=== PATIENT | female | born 1995 | race Caucasian/White ===

== ENCOUNTER 2018-05-31 16:13 | Emergency (ER) | payer OTHER ==
[~2018-05-31] VITALS: Ht 152.4 cm; Wt 57.8 kg
[2018-05-31 16:30] VITALS: BP 131/82
[2018-05-31] MEDS ORDERED: DELTASONE20 M1 PO (17:11)
[2018-05-31] MEDS ORDERED: ROBITUSSIN AC,T10 ML PO (17:11)
[2018-05-31] MEDS ORDERED: LEVAQUIN500 MG PO (17:11)
== END 2018-05-31 17:53 | disposition home or self-care (01) ==
LOC: EME 16:13
DX: J18.9 Pneumonia, unspecified organism (principal); F17.200 Nicotine dependence, unspecified, uncomplicated
CPT/HCPCS: 71046; 99281; 99284